=== PATIENT | female | born 1955 | race Caucasian/White ===

== ENCOUNTER 2021-08-12 19:56 | Inpatient (IN) | payer OTHER ==
[~2021-08-12] VITALS: Ht 160 cm; Wt 100.3 kg
[2021-08-12 20:07] VITALS: BP 97/58
[2021-08-12] MEDS ORDERED: ALBUTEROL SULF 2.5 MG/0.5ML(0.5%) NEB SOLN ONE (20:07)
[2021-08-12] MEDS ORDERED: IPRATROPIUM BROM 0.5 MG/2.5ML INH SOL ONE (20:07)
[2021-08-12] MEDS ORDERED: ALBUTEROL SULF 2.5 MG/0.5ML(0.5%) NEB SOLN NEB ONE ×2 (20:15)
[2021-08-12] MEDS ORDERED: AZITHROMYCIN 500MG/ 250ML 250 ML IV ONE (20:15)
[2021-08-12] MEDS ORDERED: cefTRIAXone 1GM/50ML D5W 50 ML IV ONE (20:15)
[2021-08-12] MEDS ORDERED: IPRATROPIUM BROM 0.5 MG/2.5ML INH SOL NEB ONE ×2 (20:15)
[2021-08-12] MEDS ORDERED: methylPREDNISolone SOD SUCC 125 MG/2 ML VL IV ONE (20:15)
[2021-08-12 20:44] LABS: Basophils # (auto) 0.2 10 ^3/uL (0-0.2); Basophils % (auto) 2.4 % (0.0-2.0); Eosinophils # (auto) 0.9 10 ^3/uL (0-0.8); Eosinophils % (auto) 10.7 % (0.0-7.0); Hematocrit 40.6 % (36.0-46.0); Hemoglobin 13.1 g/dL (12.2-16.2); Lymphocytes # (auto) 1.1 10 ^3/uL (0.4-5.4); Lymphocytes % (auto) 12.4 % (10.0-50.0); Mean Corpuscular Hemoglobin 28.4 pg (28.0-32.0); Mean Corpuscular Hgb Conc. 32.2 g/dL (32.0-36.0); Mean Corpuscular Volume 88.1 fL (80.0-100.0); Monocytes # (auto) 0.4 10 ^3/uL (0-1.3); Monocytes % (auto) 5.1 % (0.0-12.0); Neutrophils # (auto) 5.9 10 ^3/uL (1.6-8.6); Neutrophils % (auto) 69.4 % (37.0-80.0); Nucleated Red Blood Cells % 0.2 %; Red Blood Cells 4.61 10^6/uL (4.0-5.20); Red Cell Distribution Width 16.6 % (11.8-14.3); White Blood Cell 8.5 10^3/uL (4.4-10.8)
[2021-08-12 20:59] LABS: Albumin 2.7 g/dL (3.4-5.0); Calcium 8.7 mg/dL (8.5-10.1); Magnesium 2.2 mg/dL (1.6-2.6); Potassium 5.1 mmol/L (3.5-5.1)
[2021-08-12 21:03] LABS: BUN/Creatinine Ratio 25.9; Bilirubin, Total 0.2 mg/dL (0.2-1.0); Total Protein 6.4 g/dL (6.4-8.2)
[2021-08-12 22:09] VITALS: BP 133/83
[2021-08-12] MEDS ORDERED: DEXTROSE (50%) 50ML SYRG IV PRN (23:15)
[2021-08-12] MEDS ORDERED: DOCUSATE SOD 100 MG CAP PO PRN (23:15)
[2021-08-12] MEDS ORDERED: ACETAMINOPHEN 325 MG TAB PO PRN (23:15)
[2021-08-12] MEDS ORDERED: ONDANSETRON HCL 4 MG/2 ML VIAL IV PRN (23:15)
[2021-08-13] MEDS: ALBUTEROL SULF 2.5 MG/0.5ML(0.5%) NEB SOLN NEB SCH ×5 (00:06→23:59)
[2021-08-13] MEDS: IPRATROPIUM BROM 0.5 MG/2.5ML INH SOL NEB SCH ×5 (00:06→23:59)
[2021-08-13] MEDS ORDERED: NITROGLYCERIN 0.4 MG SL TAB SL PRN (00:45)
[2021-08-13] MEDS ORDERED: MORPHINE SULFATE INJECTION 2 MG/ML SYRG IV PRN (00:45)
[2021-08-13] MEDS ORDERED: LORazepam 2MG/ML-1ML VIAL IV PRN (00:45)
[2021-08-13 03:00] VITALS: BP 109/76
[2021-08-13 03:00] LABS: Urine Bacteria FEW /hpf (None Seen); Urine Blood Negative /uL (Negative); Urine Mucus FEW (None Seen); Urine Specific Gravity 1.019 (1.001-1.035); Urine WBC 45 /hpf (0 - 5)
[2021-08-13 05:00] VITALS: BP 126/83
[2021-08-13] MEDS: SODIUM CHLOR 0.9% PF (SALINE LOCK) 10ML VIAL/SYR IV SCH ×3 (05:10→21:44)
[2021-08-13] MEDS ORDERED: methylPREDNISolone SOD SUCC 40 MG/ML VL ONE (05:57)
[2021-08-13] MEDS ORDERED: InsuLIN REG 1unit/0.01ml Soln (100units/ml) ONE (05:59)
[2021-08-13] MEDS: methylPREDNISolone SOD SUCC 40 MG/ML VL IV SCH ×3 (06:00→21:44)
[2021-08-13] MEDS: InsuLIN REG 1unit/0.01ml Soln (100units/ml) SC SCH ×4 (06:01→21:48)
[2021-08-13] MEDS: ACCU-CHEK COMFORT CURVE STRIP VI SCH ×4 (06:30→21:47)
[2021-08-13] MEDS ORDERED: ALBU108A5 IN (06:48)
[2021-08-13] MEDS ORDERED: ACET-1156 PO (06:48)
[2021-08-13] MEDS ORDERED: LEVA1.2518 HHN (06:57)
[2021-08-13] MEDS ORDERED: APIX5TAB PO (06:57)
[2021-08-13] MEDS ORDERED: ATOR40TA52 PO (06:57)
[2021-08-13] MEDS ORDERED: DILT60TA PO (06:57)
[2021-08-13] MEDS ORDERED: HYDR-4798 PO (06:57)
[2021-08-13] MEDS ORDERED: MAGN400T40 PO (06:57)
[2021-08-13] MEDS ORDERED: GABA300C10 PO (06:57)
[2021-08-13] MEDS ORDERED: MIRT1TAB38 PO (06:57)
[2021-08-13] MEDS ORDERED: ALPR0.5T PO (06:57)
[2021-08-13] MEDS ORDERED: TIOTCAP IN (06:57)
[2021-08-13] MEDS ORDERED: ALL100T PO (06:57)
[2021-08-13] MEDS ORDERED: ROPI4TAB6 PO (06:57)
[2021-08-13] MEDS ORDERED: ROPI4TAB26 PO (06:57)
[2021-08-13] MEDS ORDERED: PAR20T PO (06:57)
[2021-08-13] MEDS ORDERED: BUME1TAB3 PO (06:57)
[2021-08-13 08:58] VITALS: BP 103/45
[2021-08-13] MEDS: FAMOTIDINE (10MG/ML) 2ML VL IV SCH (11:11)
[2021-08-13] MEDS: FUROSEMIDE 40 MG/4 ML VIAL IV SCH (11:12)
[2021-08-13] MEDS: HEPARIN SODIUM (PORCINE) 5000 UNITS/ML 1ML VIAL SC SCH ×2 (11:12→21:47)
[2021-08-13] MEDS ORDERED: NICOTINE 21MG/24 HR TOPICAL PATCH TD ONE (11:15)
[2021-08-13] MEDS: ASPirin 81 mg TAB PO SCH (11:16)
[2021-08-13 13:00] VITALS: BP 118/58
[2021-08-13] MEDS ORDERED: cefTRIAXone 1GM/50ML D5W 50 ML IV ONE (16:30)
[2021-08-13 16:59] VITALS: BP 141/89
[2021-08-13] MEDS: ATORVASTATIN 20 MG TAB PO SCH (21:45)
[2021-08-13 22:00] VITALS: BP 132/91
[2021-08-14 02:32] VITALS: BP 132/91
[2021-08-14 04:51] VITALS: BP 91/73
[2021-08-14] MEDS: SODIUM CHLOR 0.9% PF (SALINE LOCK) 10ML VIAL/SYR IV SCH ×3 (05:33→23:13)
[2021-08-14] MEDS: methylPREDNISolone SOD SUCC 40 MG/ML VL IV SCH ×3 (05:33→23:14)
[2021-08-14] MEDS: ACCU-CHEK COMFORT CURVE STRIP VI SCH ×4 (06:00→23:16)
[2021-08-14] MEDS: InsuLIN REG 1unit/0.01ml Soln (100units/ml) SC SCH ×4 (06:05→23:16)
[2021-08-14] MEDS: IPRATROPIUM BROM 0.5 MG/2.5ML INH SOL NEB SCH ×4 (07:07→23:44)
[2021-08-14] MEDS: ALBUTEROL SULF 2.5 MG/0.5ML(0.5%) NEB SOLN NEB SCH ×4 (07:07→23:44)
[2021-08-14] MEDS: cefTRIAXone 1GM/50ML D5W 50 ML IV SCH (08:45)
[2021-08-14 09:00] VITALS: BP 146/83
[2021-08-14] MEDS: ASPirin 81 mg TAB PO SCH (09:44)
[2021-08-14] MEDS: FAMOTIDINE (10MG/ML) 2ML VL IV SCH (09:44)
[2021-08-14] MEDS: FUROSEMIDE 40 MG/4 ML VIAL IV SCH (09:44)
[2021-08-14] MEDS: NICOTINE 21MG/24 HR TOPICAL PATCH TD SCH (09:45)
[2021-08-14] MEDS: HEPARIN SODIUM (PORCINE) 5000 UNITS/ML 1ML VIAL SC SCH ×2 (09:54→23:15)
[2021-08-14 12:59] VITALS: BP 115/83
[2021-08-14] MEDS: GABAPENTIN 300 MG CAP PO SCH ×2 (13:40→23:14)
[2021-08-14] MEDS: HYDROcodone-ACET 5/325MG TAB PO PRN ×2 (13:41→23:17)
[2021-08-14 17:13] VITALS: BP 142/91
[2021-08-14 22:00] VITALS: BP 151/99
[2021-08-14] MEDS ORDERED: ROPINIROLE 5 MG PO SCH (22:00)
[2021-08-14] MEDS: ATORVASTATIN 20 MG TAB PO SCH (23:14)
[2021-08-15 05:00] VITALS: BP 145/109
[2021-08-15] MEDS: ALBUTEROL SULF 2.5 MG/0.5ML(0.5%) NEB SOLN NEB SCH ×2 (06:27→15:34)
[2021-08-15] MEDS: IPRATROPIUM BROM 0.5 MG/2.5ML INH SOL NEB SCH ×2 (06:27→15:34)
[2021-08-15] MEDS: SODIUM CHLOR 0.9% PF (SALINE LOCK) 10ML VIAL/SYR IV SCH ×2 (06:35→13:58)
[2021-08-15] MEDS: methylPREDNISolone SOD SUCC 40 MG/ML VL IV SCH ×2 (06:36→13:59)
[2021-08-15] MEDS: InsuLIN REG 1unit/0.01ml Soln (100units/ml) SC SCH ×3 (06:37→17:00)
[2021-08-15] MEDS: GABAPENTIN 300 MG CAP PO SCH ×2 (06:38→13:58)
[2021-08-15] MEDS: ACCU-CHEK COMFORT CURVE STRIP VI SCH ×3 (06:38→17:00)
[2021-08-15 08:00] VITALS: BP 117/90
[2021-08-15] MEDS: cefTRIAXone 1GM/50ML D5W 50 ML IV SCH (08:30)
[2021-08-15] MEDS: FUROSEMIDE 40 MG/4 ML VIAL IV SCH (09:46)
[2021-08-15] MEDS: NICOTINE 21MG/24 HR TOPICAL PATCH TD SCH (09:46)
[2021-08-15] MEDS: ASPirin 81 mg TAB PO SCH (09:47)
[2021-08-15] MEDS: FAMOTIDINE (10MG/ML) 2ML VL IV SCH (09:47)
[2021-08-15] MEDS: HEPARIN SODIUM (PORCINE) 5000 UNITS/ML 1ML VIAL SC SCH (09:48)
[2021-08-15] MEDS ORDERED: PARoxetine 20 MG TAB PO SCH (10:00)
[2021-08-15 13:00] VITALS: BP 143/119
[2021-08-15 15:26] VITALS: BP 138/98
== END 2021-08-15 18:23 | disposition home or self-care (01) | DRG 189 ==
LOC: EDBD 19:56 → ER 19:56 → TELE-WESTW 08-13 00:32 → ER 08-13 02:25
PROVIDERS: ADMIT Nurse Practitioner Family; ATTEND Family Medicine
PROC: 5A09357 Assistance with Respiratory Ventilation, Less than 24 Consecutive Hours, Continuous Positive Airway Pressure (ICD-10-PCS; 2021-08-12)
PROC: 5A09357 Assistance with Respiratory Ventilation, Less than 24 Consecutive Hours, Continuous Positive Airway Pressure (ICD-10-PCS; principal; 2021-08-13)
DX: J96.22 Acute and chronic respiratory failure with hypercapnia (principal); J44.1 Chronic obstructive pulmonary disease with (acute) exacerbation; N17.9 Acute kidney failure, unspecified; N39.0 Urinary tract infection, site not specified; E44.0 Moderate protein-calorie malnutrition; J96.21 Acute and chronic respiratory failure with hypoxia; I95.9 Hypotension, unspecified; I50.9 Heart failure, unspecified; I27.20 Pulmonary hypertension, unspecified; G25.81 Restless legs syndrome; G89.4 Chronic pain syndrome; G62.9 Polyneuropathy, unspecified; E78.00 Pure hypercholesterolemia, unspecified; E11.9 Type 2 diabetes mellitus without complications; A49.9 Bacterial infection, unspecified; Z20.822 Contact with and (suspected) exposure to COVID-19; I11.0 Hypertensive heart disease with heart failure; R79.89 Other specified abnormal findings of blood chemistry; F17.200 Nicotine dependence, unspecified, uncomplicated; F32.A Depression, unspecified; E66.01 Morbid (severe) obesity due to excess calories; Z68.38 Body mass index [BMI] 38.0-38.9, adult; Z88.1 Allergy status to other antibiotic agents; Z88.2 Allergy status to sulfonamides; Z88.0 Allergy status to penicillin; Z68.30 Body mass index [BMI] 30.0-30.9, adult; Z86.16 Personal history of COVID-19; Z71.6 Tobacco abuse counseling
CPT/HCPCS: 36415; 36600; 71045; 80053; 81001; 82805; 82962; 83605; 83735; 83880; 84484; 85025; 85379; 87040; 87086; 87426; 93306; 94640; 94660; 96365; 96367; 96375; G0378; J0696; J1815; J3490